=== PATIENT | female | born 1995 | race African-American/Black ===

== ENCOUNTER 2016-10-29 09:17 | Emergency (ER) | payer OTHER | END 2016-10-29 10:07 | disposition home or self-care (01) | LOC: CFTX 09:17 → CED 09:17 → CFTX 09:52 | DX: H61.001 Unspecified perichondritis of right external ear (principal); J45.909 Unspecified asthma, uncomplicated; F17.210 Nicotine dependence, cigarettes, uncomplicated; Z79.899 Other long term (current) drug therapy | CPT/HCPCS: 99283 ==